=== PATIENT | female | born 1950 | race Caucasian/White ===

== ENCOUNTER 2016-09-20 17:37 | Emergency (ER) | payer BC ==
[2016-09-20 19:45] LABS: HEMOGLOBIN 13.1 gm/dl (12.3-15.3); RED BLOOD COUNT 4.56 M/UL (4.00-5.10); WHITE BLOOD COUNT 12.4 K/UL (4.5-11.0)
[2016-09-20 20:06] LABS: BUN/CREATININE RATIO 19 (0-10)
== END 2016-09-20 23:35 | disposition home or self-care (01) ==
LOC: ER1 17:37
PROVIDERS: Physician Assistant
DX: R07.89 Other chest pain (principal); I95.9 Hypotension, unspecified; M54.2 Cervicalgia; R00.1 Bradycardia, unspecified; E11.9 Type 2 diabetes mellitus without complications; I10 Essential (primary) hypertension; Z79.82 Long term (current) use of aspirin; Z79.899 Other long term (current) drug therapy; Z88.0 Allergy status to penicillin
CPT/HCPCS: 36415; 71020; 80053; 82550; 82553; 83874; 84484; 85025; 85379; 93005; 96361; 96374; 96375; 99285; J2405